=== PATIENT | female | born 1950 | race Caucasian/White ===

== ENCOUNTER 2018-07-10 06:20 | Inpatient (IN) | payer OTHER, BC ==
[2018-07-03 14:26] VITALS: BMI 25.0
[2018-07-10] MEDS ORDERED: CEFAZOLIN 2 GM in DEXTROSE 5%-WATER - 50 ML IVPB ONE (07:07)
[2018-07-10] MEDS ORDERED: CELECOXIB 200 MG CAPSULE PO ONE (07:07)
[2018-07-10] MEDS ORDERED: VANCOMYCIN 1,000 MG in DEXTROSE 5%-WATER - 250 ML IVPB ONE (07:07)
[2018-07-10] MEDS ORDERED: TRANEXAMIC ACID 1000 MG/10 ML VIAL IVPUSH ONE (07:07)
[2018-07-10] MEDS ORDERED: BUPIVACAINE LIPOSOME/PF (EXPAREL) 266 MG/20 ML VIAL ONE (07:15)
[2018-07-10] MEDS ORDERED: DEXAMETHASONE SOD PHOSPHATE/PF 10 MG/ML SDV ONE (07:15)
[2018-07-10] MEDS ORDERED: MIDAZOLAM HCL 2 MG/2 ML SINGLE DOSE VIAL ONE ×2 (07:19→07:32)
[2018-07-10] MEDS ORDERED: BENZOIN/ALOE VERA/STORAX/TOLU 58 ML BOTTLE ONE (07:29)
[2018-07-10 08:03] LABS: INR 1.09 (0.83-1.09); PROTHROMBIN TIME (PATIENT) 12.3 SEC (9.7-13.0)
[2018-07-10] MEDS ORDERED: ONDANSETRON 4 MG/2 ML VIAL IVPUSH PRN (08:32)
[2018-07-10] MEDS ORDERED: oxyCODONE HCL 5 MG TABLET PO PRN (08:32)
[2018-07-10] MEDS ORDERED: LACTATED RINGERS SOLUTION 1,000 ML IV SCH ×2 (08:45→12:30)
[2018-07-10] MEDS ORDERED: PROPOFOL 20 ML ONE ×6 (08:59→09:37)
[2018-07-10] MEDS ORDERED: ceFAZolin SODIUM 1 GM VIAL ONE ×2 (09:06→11:19)
[2018-07-10] MEDS ORDERED: SODIUM CHLORIDE 0.9% P/F 10 ML VIAL IJ ONE ×3 (09:06→11:19)
[2018-07-10] MEDS ORDERED: VANCOMYCIN 1,000 MG VIAL (RESTRICTED TO ID ONLY) ONE (09:06)
[2018-07-10] MEDS ORDERED: KETOROLAC TROMETHAMINE 30 MG/1 ML VIAL ONE (09:11)
[2018-07-10] MEDS ORDERED: METOPROLOL TARTRATE 5 MG/5 ML VIAL ONE (09:54)
[2018-07-10] MEDS ORDERED: EPINEPHrine/PF 1 MG/1 ML (1:1,000) AMPULE ONE (10:17)
[2018-07-10] MEDS ORDERED: KETOROLAC TROMETHAMINE 60 MG/2 ML VIAL ONE (10:17)
[2018-07-10] MEDS ORDERED: BUPIVACAINE HCL/PF 2.5 MG/ML - 30 ML VIAL IJ ONE (10:18)
[2018-07-10] MEDS ORDERED: morphine CARPU-JECT 10 MG/1 ML DISP.SYRIN ONE (10:18)
[2018-07-10] MEDS ORDERED: TRANEXAMIC ACID 1000 MG/10 ML VIAL ONE (11:19)
--- NOTE | 2018-07-10 12:17 | PN ---
Progress Note (short form) - Note Progress Note: 68F s/p LEFT total knee replacement POD #0. -Pain control. -DVT PPx: -Chemical: ASA 81mg PO BID x 6 weeks; home Coumadin dosage. -Mechanical: ALISHA's, SCD's. -Incentive spirometry q15 min. -PT/OT/Rehab, OOB. -WBAT LLE. -Antibiotics: Ancef x 2 post op doses. -f/u post-op trial of void. -Diet as tolerated. -Keep dressing clean & dry. -Care per medical hospitalist team. -f/u [facility] [place] office 07/18/2018; call for appointment; . -Will follow. Hesham Leal MD (Orthopaedic Surgery).
--- NOTE | 2018-07-10 12:19 | OP ---
Operative Note - Note: Operative Date: 07/10/18 Pre-Operative Diagnosis: Left knee DJD Operation: Left total knee replacement Findings: Tourniquet Pressure: 350mmHg Tourniquet Time: 98 minutes Post-Operative Diagnosis: Same as Pre-op Surgeon: Hesham Leal Medical Attendant: Michael Leal Anesthesiologist/JIGSAW OPERATOR: Matias Og Anesthesia: Spinal, Local Specimens Removed: Bone, soft tissue Estimated Blood Loss (mls): 25 Fluid Volume Replaced (mls): 1,000 Operative Report Dictated: Yes
[2018-07-10] MEDS ORDERED: MAG HYDROX/AL HYDROX/SIMETH 30 ML UNIT-DOSE CUP PO PRN (12:20)
[2018-07-10] MEDS ORDERED: MAGNESIUM HYDROX 2400MG/30ML ORAL SUSPENSION 30 ML CUP PO PRN (12:20)
[2018-07-10] MEDS ORDERED: ACETAMINOPHEN 325 MG TABLET (FP) PO ONE (12:40)
--- NOTE | 2018-07-10 14:04 | CONSULT ---
Consultation: REQUESTING PROVIDER: Dr Leal CONSULT REQUEST: We have been asked to medically evaluate this patient for medical management. HISTORY OF PRESENT ILLNESS: Patient is a 68-year-old female with a past medical history of hypertension, atrial fibrillation (Coumadin) adams's esophagus, And splenomegaly. Patient was admitted to the medical surgical floor after an elective left total knee replacement, 07/09/2018, spinal anesthesia, Dr Leal REVIEW OF SYSTEMS: CONSTITUTIONAL: Absent: fever, chills, diaphoresis, generalized weakness, malaise, loss of appetite, weight change HEENT: Absent: rhinorrhea, nasal congestion, throat pain, throat swelling, difficulty swallowing, mouth swelling, ear pain, eye pain, visual changes CARDIOVASCULAR: Absent: chest pain, syncope, palpitations, irregular heart rate, lightheadedness , peripheral edema RESPIRATORY: Absent: cough, shortness of breath, dyspnea with exertion, orthopnea, wheezing, stridor, hemoptysis GASTROINTESTINAL: Absent: abdominal pain, abdominal distension, nausea, vomiting, diarrhea, constipation, melena, hematochezia GENITOURINARY: Absent: dysuria, frequency, urgency, hesitancy, hematuria, flank pain, genital pain MUSCULOSKELETAL: Present: left knee pain Absent: myalgia, arthralgia, joint swelling, back pain, neck pain SKIN: Absent: rash, itching, pallor HEMATOLOGIC/IMMUNOLOGIC: Absent: easy bleeding, easy bruising, lymphadenopathy, frequent infections ENDOCRINE: Absent: unexplained weight gain, unexplained weight loss, heat intolerance, cold intolerance NEUROLOGIC: Absent: headache, focal weakness or paresthesias, dizziness, unsteady gait, seizure, mental status changes, bladder or bowel incontinence PSYCHIATRIC: Absent: anxiety, depression, suicidal or homicidal ideation, hallucinations. PHYSICAL EXAMINATION Vital Signs - 24 hr 07/10/18 07/10/18 07/10/18 06:59 12:25 12:30 Temperature 97.7 F 98.2 F Pulse Rate 78 73 65 Respiratory 18 18 18 Rate Blood Pressure 143/63 119/62 111/88 O2 Sat by Pulse 97 99 Oximetry (%) 07/10/18 07/10/18 07/10/18 12:35 12:40 12:45 Temperature Pulse Rate 72 65 70 Respiratory 18 18 18 Rate Blood Pressure 128/60 115/58 L 115/58 L O2 Sat by Pulse 97 99 99 Oximetry (%) 0907/10/18 07/10/18 13:00 13:15 13:26 Temperature Pulse Rate 70 70 74 Respiratory 18 18 18 Rate Blood Pressure 106/70 129/58 L 117/50 L O2 Sat by Pulse 99 99 98 Oximetry (%) 07/10/18 13:27 Temperature Pulse Rate 74 Respiratory 18 Rate Blood Pressure 117/50 L O2 Sat by Pulse Oximetry (%) GENERAL: Awake, alert, and fully oriented, in no acute distress. HEAD: Normal with no signs of trauma. EYES: Pupils equal, round and reactive to light, extraocular movements intact, sclera anicteric, conjunctiva clear. No lid lag. EARS, NOSE, THROAT: Ears normal, nares patent, oropharynx clear without exudates. Moist mucous membranes. NECK: Normal range of motion, supple without lymphadenopathy, JVD, or masses. LUNGS: Breath sounds equal, clear to auscultation bilaterally. No wheezes, and no crackles. No accessory muscle use. HEART: irregular rate and rhythm, normal S1 and S2 without murmur, rub or gallop. ABDOMEN: Soft, nontender, not distended, normoactive bowel sounds, no guarding, no rebound, no masses. No hepatomegaly or splenomegaly. MUSCULOSKELETAL: Normal range of motion at all joints. No bony deformities or tenderness. No CVA tenderness. UPPER EXTREMITIES: 2+ pulses, warm, well-perfused. No cyanosis. No clubbing. Cap refill <2 seconds. No peripheral edema. LOWER EXTREMITIES: 2+ pulses, warm, well-perfused. No calf tenderness. No peripheral edema. LEFT LOWER EXTREMITY: Dressing CDI, Less than 3 second capillary refill,+3 pedal pulse, SCD/ALISHA NEUROLOGICAL: Cranial nerves II-XII intact. Normal speech. Normal gait. PSYCHIATRIC: Cooperative. Good eye contact. Appropriate mood and affect. SKIN: Warm, dry, normal turgor, no rashes or lesions noted. Laboratory Results - last 24 hr 07/10/18 07:00 PT with INR 12.30 INR 1.09 Active Medications Generic Name Dose Route Start Last Admin Trade Name Freq PRN Reason Stop Dose Admin Acetaminophen 650 mg 07/10/18 12:00 Tylenol - PO 07/13/18 11:59 Q6H ERIN Al Hydroxide/Mg Hydroxide 30 ml 07/10/18 12:20 Mylanta Oral Suspension - PO Q4H PRN DYSPEPSIA Aspirin 81 mg 07/10/18 22:00 Asa - PO BID [facility] Celecoxib 200 mg 07/11/18 10:00 Celebrex - PO DAILY [facility] Fentanyl 50 mcg 07/10/18 08:32 07/10/18 13:15 Sublimaze Injection - IVPUSH 25 mcg [id number] PRN Administration PAIN-PACU ORDER X 4 DOSES ONLY Cefazolin Sodium 1 gram in 50 mls @ 100 mls/hr 07/10/18 19:00 Ancef 1 Gm Premixed Ivpb - IVPB 07/11/18 03:29 Q8H [facility] Lactated Ringer's 1,000 mls @ 100 mls/hr 07/10/18 12:30 Lactated Ringers Solution IV 07/11/18 06:00 ASDIR [facility] Losartan Potassium 50 mg 07/11/18 10:00 Cozaar - PO DAILY [facility] Magnesium Hydroxide 30 ml 07/10/18 12:20 Milk Of Magnesia - PO PRN PRN CONSTIPATION Ondansetron HCl 4 mg 07/10/18 08:32 07/10/18 13:17 Zofran Injection IVPUSH 4 mg Q6H PRN Administration NAUSEA AND/OR VOMITING Ondansetron HCl 4 mg 07/10/18 12:20 Zofran Injection IVPUSH Q6H PRN NAUSEA Oxycodone HCl 5 mg 07/10/18 08:32 07/10/18 13:40 Roxicodone - PO 5 mg Q3H PRN Administration PAIN LEVEL 1-5 Oxycodone HCl 10 mg 07/10/18 08:32 Roxicodone - PO Q3H PRN PAIN LEVEL 6-10 Oxycodone HCl 10 mg 07/10/18 10:00 Oxycontin - PO 07/13/18 08:35 BID [facility] Pantoprazole Sodium 40 mg 07/11/18 10:00 Protonix - PO DAILY [facility] Pantoprazole Sodium 40 mg 07/11/18 10:00 Protonix - PO DAILY [facility] Senna/Docusate Sodium 2 tablet 07/10/18 22:00 Pericolace - PO BID [facility] Warfarin Sodium 3 mg 07/12/18 18:00 Coumadin - PO TuFr [facility] Warfarin Sodium 6 mg 07/10/18 18:00 Coumadin - PO SuMoWeThSa [facility] ASSESSMENT/PLAN: 1) MS s/p left total knee replacement, POD #0 - prn pain medication - monitor hgb/hct - incentive spirometer - physical therapy as per the orthopedist 2) cardiovascular Atrial fibrillation - continous cardiac monitoring for 24 hours - restart coumadin home dose today, cleared by orthopedist - Lube Attendant, Dr. Rodriges, chart reviewed, echocardiogram completed June 2018 EF WNL cardiac catheterization completed preoperatively no coronary artery disease as per record hypertension - Continue losartan, strict - blood pressure monitoring every 4 hours 3) GI Adams's esophagus - continue Protonix daily home dose Dispo: We will continue to follow the patient. Thank you for this consultative opportunity. Visit type - Emergency Visit Emergency Visit: No - New Patient This patient is new to me today: Yes Date on this admission: 07/10/18 - Critical Care Critical Care patient: No
[2018-07-10] MEDS ORDERED: ACETAMINOPHEN 1000 MG/100 ML VIAL (NON FORMULARY) IVPB ONE (14:09)
[2018-07-10] MEDS: oxyCODONE HCL 10 MG SUSTAINED ACTING TABLET PO SCH ×2 (15:17→21:15)
[2018-07-10] MEDS: ACETAMINOPHEN 325 MG TABLET (FP) PO SCH ×2 (15:17→18:26)
[2018-07-10] MEDS: oxyCODONE HCL 5 MG TABLET PO PRN (16:07)
[2018-07-10] MEDS: WARFARIN NA 3 MG TABLET PO SCH (18:26)
[2018-07-10] MEDS: CEFAZOLIN 1 GM/D5W 1 GRAM/50 ML BAG IVPB SCH (18:26)
[2018-07-10] MEDS: SENNOSIDES/DOCUSATE COMBO (SENNA PLUS) TABLET (UD) PO SCH (21:16)
[2018-07-10] MEDS: ASPIRIN 81 MG CHEWABLE TABLETS PO SCH (21:16)
[2018-07-11] MEDS: ACETAMINOPHEN 325 MG TABLET (FP) PO SCH ×4 (00:53→17:54)
[2018-07-11] MEDS: oxyCODONE HCL 5 MG TABLET PO PRN (00:53)
[2018-07-11] MEDS: CEFAZOLIN 1 GM/D5W 1 GRAM/50 ML BAG IVPB SCH (02:09)
--- NOTE | 2018-07-11 07:26 | PN ---
Progress Note (short form) - Note Progress Note: POD #1 s/p Left total knee replacement (DJD) Alert. Doing well. Sitting in chair at bedside. States she used rolling walker and ambulated to bathroom. C/o incisional tenderness. Adequate pain control via PRN pain meds as ordered. Denies n/v/f/c, CP, SOB or MURILLO. Last Vital Signs Temp Pulse Resp BP Pulse Ox 98.1 F 61 19 113/52 L 95 07/11/18 06:00 07/11/18 06:00 07/11/18 06:00 07/11/18 06:00 07/11/18 06:55 Gen: nad Pulm: CTA bilat Cor: afib LE: RLE unremarkable. LLE: in full extension while on recliner. Actively goes into flexion ~ [address] pack [address]. Nicola wrap from toes to just above knee (mid-thigh) in place. Foot is warm. + DP. Problem List - Problems (1) Left knee DJD Assessment/Plan: POD #1 s/p Left TKR Physical therapy today Cont pain management DVT PPx: ASA 81mg PO BID x6 weeks, TEDS/SCDs Incentive spirometer WBAT LLE Cont care as per medicine DC planning 07/12 f/u with [facility] [place] [facility] - call for an appointment Above plan discussed with Dr. Hesham Leal and agrees. Code(s): M17.12 - UNILATERAL PRIMARY OSTEOARTHRITIS, LEFT KNEE
[2018-07-11 07:47] LABS: HEMATOCRIT 36.6 % (32.4-45.2); HEMOGLOBIN 12.7 GM/dl (10.7-15.3); MCH 31.8 pg (25.7-33.7); MCHC 34.7 g/dl (32.0-36.0); MEAN CELL VOLUME 91.6 fl (80-96); MEAN PLT VOLUME 9.1 fl (7.5-11.1); PLATELET COUNT 267 K/MM3 (134-434); RBC 3.99 M/mm3 (3.60-5.2); RDW 12.2 % (11.6-15.6); WHITE BLOOD COUNT 15.9 K/mm3 (4.0-10.8)
[2018-07-11 07:58] LABS: INR 1.21 (0.82-1.09); PROTHROMBIN TIME (PATIENT) 13.5 SEC (10.2-13.0)
[2018-07-11 07:59] LABS: ANION GAP 7 MMOL/L (8-16); BLOOD UREA NITROGEN 16 mg/dl (7-18); CALCIUM 9.1 mg/dl (8.4-10.2); CHLORIDE 98 mmol/L (98-107); CO2 27 mmol/L (22-28); GLUCOSE,RANDOM 110 mg/dl (74-106); POTASSIUM 4.3 mmol/L (3.5-5.1); SODIUM 132 mmol/L (136-145)
--- NOTE | 2018-07-11 08:07 | OP ---
DATE OF OPERATION: 07/10/2018 PRE-OPERATIVE DIAGNOSIS: Osteoarthritis left knee. POSTOPERATIVE DIAGNOSIS: Osteoarthritis left knee. PROCEDURE PERFORMED: Left total knee replacement. SURGEON: Hesham Leal M.D. ASSISTANT GROCERY STORE MANAGER: Michael Leal M.D. ANESTHESIA: Spinal, sedation, adductor canal block. POSITION: Supine INCISION: Midline SPECIMENS REMOVED: Bones, soft tissue. ESTIMATED BLOOD LOSS: 25 mL. INTRAVENOUS FLUID: 1L crystalloid. SPECIMENS: None. COMPLICATIONS: None. URINE OUTPUT: None. BACTERIOLOGY: None. TRANSFUSIONS: None. CLOSURE: No. 1 and 2-0 Vicryl, 3-0 Biosyn absorbable sutures. TOURNIQUET PRESSURE: 350 mmHg. TOURNIQUET TIME: 98 minutes. INDICATIONS: The patient is a 68-year-old female who was indicated for a left total knee replacement to facilitate improved motion and mobilization and to prevent the complications associated with a sedentary lifestyle. The patient was identified in the holding area by her armband. A long discussion was held with the patient, in the presence of her family, regarding the risks, benefits, and alternatives of the above-named procedure. The risks include, but are not limited to: Pain, bleeding, infection, damage to surrounding structures (including nerves, blood vessels, skin, ligaments, tendons, and bone), wound complications, failure of hardware/implants/reduction , need for further surgery, blood clots, myocardial infarction, cerebrovascular injury, pulmonary embolism, anesthesia complications, compartment syndrome, limb loss, limp, loss of function, and . Benefits were as mentioned above. Alternatives include no surgery. All questions were answered. The patient and her family agreed to the procedure. Informed consent was obtained, witnessed, and verified. The patient's correct operative limb - that is the left lower extremity - was marked and she then received a left lower extremity adductor canal nerve block in the preoperative holding area. The patient was taken to the operating room after being seen by the anesthesia and nursing staff. PROCEDURE: The patient was brought into the operating room and transferred to the OR table , where she was secured with a safety strap. Consent and the operative site were again verified with the patient and nursing and anesthesia staff. Upon arrival into the operating room, she received 1g of intravenous vancomycin , 2g of intravenous Ancef, and 1g intravenous tranexamic acid (TXA). A time-out was then done led by , the attending surgeon. The patient was positioned with all bony prominences well padded, and a tourniquet was placed proximally on the left thigh and set to 350 mmHg. The operative limb was prepped in standard sterile fashion using betadine prep & scrub, wiped off with alcohol, DuraPrep applied, and then free draped. A time-out was again done. The limb was then exsanguinated using elevation and an Esmarch. The tourniquet was inflated, and the case began. A midline longitudinal incision was made over the left knee followed by a subvastus exposure. The infrapatellar fat pad was excised. A peripatellar neurectomy was performed using electrocautery. The patella was everted, and a free-hand cut was made using an oscillating saw blade to facilitate patellar resurfacing. With the intention of implanting a 27mm, symmetric patellar button, a drill guide was utilized to ream 3 drill holes into the cut surface of the patella. The knee was then flexed to 90 degrees and the anterior cruciate ligament (ACL) and posterior cruciate ligament (PCL) were transected using electrocautery. Throughout the case, sharp and blunt Hohmann retractors were used to provide full exposure of the knee, and also to protect the collateral ligaments, the patellar ligament, the quadriceps mechanism, and other soft tissue structures. Next, attention was turned to the proximal tibia. The tibia was subluxed anteriorly and the extra-medullary jig was assembled and placed. With alignment verified, the tibial cutting block was pinned into position and the proximal tibial cut was made using an oscillating saw. The bone cut was freed of all soft tissue attachments using electrocautery. Next, attention was turned to the distal femur. An opening reamer was used to access the medullary canal of the distal femur. This was approximately 1cm anterior to the intercondylar notch and centered of the lateral aspect of the medial femoral condyle. The intra-medullary alignment jig was then inserted, and the distal femoral cutting block was pinned into position. The distal femoral cut was then made using an oscillating saw. Using a combination of [place]'s line, the trans-epicondylar axis, and the posterior condylar axis, appropriate rotation of the distal femoral sizing block was dialed in. The size of the distal femur was measured and the 4-in-1 distal femoral cutting block was pinned into position. The anterior, anterior chamfer, posterior, and posterior chamfer cuts were then made using an oscillating saw. All bone cuts were removed. With the knee in full extension, laminar spreaders were used to facilitate excision of the medial and lateral menisci using electrocautery. With the knee in full extension and gentle traction applied to the ankle, a rectangular box could be visualized where the bone cuts had been made. With gentle impaction of the proximal tibia into the distal femur, excellent limb alignment was confirmed. A spacer block was then used to confirm symmetric space/gap balance in both full extension and in 90 degrees of flexion of the knee. The notch cutting block was pinned into place over the distal femur and the notch cuts were made using a chisel and an oscillating saw. The bone cut and soft tissue attachments were excised using electrocautery. The tibial preparation plate was then pinned into place, the trial femoral component was positioned, and a 9mm trial polyethylene liner was inserted. The knee was then taken through a full range of motion, demonstrating excellent stability and range of motion in the coronal, sagittal, and axial planes from 0 to 130 degrees of flexion. At 90 degrees of flexion, 2 lug holes were drilled via the femoral trial component into the distal femoral bone bed. The femoral trial component and polyethylene liner were then removed, and the proximal tibial preparation was completed using a drill guide, drill, and keel punch. All tibial trial components were then removed. All cut bone surfaces, soft tissues, and remaining surgically exposed structures were then thoroughly irrigated using pulse lavage. The cut bone surfaces were dried, and the interstices of the bone bed were free of blood, water, and lipid content. Final components were implanted using low viscosity cement mixed in a vacuum. Cementation was performed using a pressurized gun. The trial 9mm liner was then inserted. The knee was then placed in full extension while the cement hardened. All extraneous cement was removed. Next, the knee was taken through a full range of motion and alignment and stability in the coronal, sagittal, and rotation planes in full extension and at 90 degrees of flexion were satisfactory. The leg was straightened, and passive range of motion was demonstrated from 0 to 130 degrees of knee flexion. The knee was thoroughly irrigated once again after removal of the trial polyethylene insert. Another 1g of Ancef was administered intravenously. The tourniquet was then released at a final time of 98 minutes, and hemostasis was achieved using electrocautery. The final polyethylene liner was then inserted. Once again, the knee was taken through a full range of motion and alignment and stability in the coronal, sagittal, and rotation planes in full extension and at 90 degrees of flexion were satisfactory. The leg was straightened, and passive range of motion was demonstrated from 0 to 130 degrees of knee flexion. Final components utilized: Monica Triathlon Femur - size #2. Tibia - size #2. Polyethylene liner - 9mm, PS (posterior stabilized). Patella - 27mm, symmetric. Once again, the wounds were copiously irrigated and hemostasis was assured. The wounds were closed primarily using No. 1 and 2-0 Vicryl sutures, and the skin was eventually closed using 3-0 Biosyn in intracuticular running fashion. Next, the skin surface was cleaned using saline-soaked lap pads and then dried using dry lap pads. Benzoin and Steri-Strips as well as a JumpStart dressing were applied over the wounds, and Webril as well as Nicola wraps were placed from the foot all the way up to the thigh with a compressive, sterile dressing. The sponge and needle counts were correct at the end of the case, and I, the attending surgeon, was present and scrubbed throughout the case. The patient was then transferred to the hospital bed and then to the recovery room in stable condition having tolerated this procedure well. MD KRYSTINA Jamil/[id number] MTDD
[2018-07-11] MEDS: ASPIRIN 81 MG CHEWABLE TABLETS PO SCH ×2 (09:33→21:04)
[2018-07-11] MEDS: oxyCODONE HCL 10 MG SUSTAINED ACTING TABLET PO SCH ×2 (09:34→21:04)
[2018-07-11] MEDS: CELECOXIB 200 MG CAPSULE PO SCH (09:35)
[2018-07-11] MEDS: LOSARTAN POTASSIUM 50 MG TABLET (FP) PO SCH (09:35)
[2018-07-11] MEDS: SENNOSIDES/DOCUSATE COMBO (SENNA PLUS) TABLET (UD) PO SCH ×2 (09:36→21:03)
[2018-07-11] MEDS: PANTOPRAZOLE 40 MG TABLET (FP) PO SCH (09:39)
[2018-07-11] MEDS ORDERED: PANTOPRAZOLE 40 MG TABLET (FP) PO SCH (10:00)
[2018-07-11] MEDS: ONDANSETRON 4 MG/2 ML VIAL IVPUSH PRN ×2 (11:07→17:51)
--- NOTE | 2018-07-11 11:08 | PN ---
Progress Note (short form) - Note Progress Note: 68F POD1 s/p left knee arthroplasty under spinal anesthetic with peripheral nerve blocks for post operative pain relief. Pt states that pain is well controlled and reports no anesthetic complications. AVSS. Motor and sensory function stable in bilateral lower extremities. Continue current regimen.
--- NOTE | 2018-07-11 13:58 | PN ---
Physical Exam: SUBJECTIVE: Patient seen and examined, The patient resting comfortably in bedside recliner, reports feeling well participate in physical therapy today reports minimal pain to the left lower extremity. OBJECTIVE: Patient is a 68-year-old female with a past medical history of hypertension, atrial fibrillation (Coumadin) adams's esophagus, and splenomegaly. patient is s/p Left total knee replacement, 07/10/2018, spinal anesthesia, Dr Leal Vital Signs Period Temp Pulse Resp BP Sys/Foster Pulse Ox Last 24 Hr 98.1 F-98.7 F 61-77 16-19 113-142/50-71 95-100 GENERAL: The patient is awake, alert, and fully oriented, in no acute distress. HEAD: Normal with no signs of trauma. EYES: PERRL, extraocular movements intact, sclera anicteric, conjunctiva clear. No ptosis. ENT: Ears normal, nares patent, oropharynx clear without exudates, moist mucous membranes. NECK: Trachea midline, full range of motion, supple. LUNGS: Breath sounds equal, clear to auscultation bilaterally, no wheezes, no crackles, no accessory muscle use. HEART: irregular rate and rhythm, S1, S2 without murmur, rub or gallop. ABDOMEN: Soft, nontender, nondistended, normoactive bowel sounds, no guarding, no rebound, no hepatosplenomegaly, no masses. EXTREMITIES: 2+ pulses, warm, well-perfused, no edema. LEFT EXTREMITY: scd/priya, less than 3 second capillary refill, +3 pedal pulse NEUROLOGICAL: Cranial nerves II through XII grossly intact. Normal speech, gait not observed. PSYCH: Normal mood, normal affect. SKIN: Warm, dry, normal turgor, no rashes or lesions noted Laboratory Results - last 24 hr 07/11/18 07/11/18 07/11/18 07:30 07:30 07:30 WBC 15.9 H RBC 3.99 Hgb 12.7 Hct 36.6 MCV 91.6 MCH 31.8 MCHC 34.7 RDW 12.2 Plt Count 267 MPV 9.1 PT with INR 13.5 H INR 1.21 Sodium 132 L Potassium 4.3 Chloride 98 Carbon Dioxide 27 Anion Gap 7 L BUN 16 Creatinine 1.0 Creat Clearance w eGFR 55.14 Random Glucose 110 H Calcium 9.1 Active Medications Generic Name Dose Route Start Last Admin Trade Name Freq PRN Reason Stop Dose Admin Acetaminophen 650 mg 07/10/18 12:00 07/11/18 11:07 Tylenol - PO 07/13/18 11:59 650 mg Q6H ERIN Administration Al Hydroxide/Mg Hydroxide 30 ml 07/10/18 12:20 07/11/18 12:56 Mylanta Oral Suspension - PO 30 ml Q4H PRN Administration DYSPEPSIA Aspirin 81 mg 07/10/18 22:00 07/11/18 09:33 Asa - PO 81 mg BID ERIN Administration Celecoxib 200 mg 07/11/18 10:00 07/11/18 09:35 Celebrex - PO 200 mg DAILY ERIN Administration Losartan Potassium 50 mg 07/11/18 10:00 07/11/18 09:35 Cozaar - PO 50 mg DAILY ERIN Administration Magnesium Hydroxide 30 ml 07/10/18 12:20 Milk Of Magnesia - PO PRN PRN CONSTIPATION Ondansetron HCl 4 mg 07/10/18 12:20 07/11/18 11:07 Zofran Injection IVPUSH 4 mg Q6H PRN Administration NAUSEA Oxycodone HCl 5 mg 07/10/18 08:32 07/10/18 13:40 Roxicodone - PO 5 mg Q3H PRN Administration PAIN LEVEL 1-5 Oxycodone HCl 10 mg 07/10/18 08:32 07/11/18 00:53 Roxicodone - PO 10 mg Q3H PRN Administration PAIN LEVEL 6-10 Oxycodone HCl 10 mg 07/10/18 10:00 07/11/18 09:34 Oxycontin - PO 07/13/18 08:35 10 mg BID ERIN Administration Pantoprazole Sodium 40 mg 07/11/18 10:00 07/11/18 09:39 Protonix - PO Not Given DAILY [facility] Senna/Docusate Sodium 2 tablet 07/10/18 22:00 07/11/18 09:36 Pericolace - PO 2 tablet BID [facility] Administration Warfarin Sodium 3 mg 07/12/18 18:00 Coumadin - PO TuFr ERIN Warfarin Sodium 6 mg 07/10/18 18:00 07/10/18 18:26 Coumadin - PO 6 mg SuMoWeThSa [facility] Administration ASSESSMENT/PLAN: 1) MS s/p left total knee replacement, POD #1 - prn pain medication - monitor hgb/hct - incentive spirometer - physical therapy as per the orthopedist 2) cardiovascular Atrial fibrillation - continous cardiac monitoring for 24 hours pt remains in afib, rate controlled - continue coumadin home dose, cleared by orthopedist - Health Unit Coordinator, Dr. Rodriges, chart reviewed, echocardiogram completed June 2018 EF WNL cardiac catheterization completed preoperatively no coronary artery disease as per record hypertension - Continue losartan, strict - blood pressure monitoring every 4 hours 3) GI Adams's esophagus - continue Protonix daily home dose Dispo: We will continue to follow the patient. Thank you for this consultative opportunity. Visit type - Emergency Visit Emergency Visit: No - New Patient This patient is new to me today: No - Critical Care Critical Care patient: No - Discharge Referral Referred to [facility] No
[2018-07-11] MEDS ORDERED: PANTOPRAZOLE SODIUM 40 MG VIAL IVPUSH ONE (17:32)
[2018-07-11] MEDS: WARFARIN NA 3 MG TABLET PO SCH (17:51)
[2018-07-12] MEDS: oxyCODONE HCL 5 MG TABLET PO PRN ×2 (00:56→07:32)
[2018-07-12] MEDS: ACETAMINOPHEN 325 MG TABLET (FP) PO SCH ×3 (00:56→11:48)
[2018-07-12 08:21] LABS: HEMATOCRIT 31.4 % (32.4-45.2); HEMOGLOBIN 10.9 GM/dl (10.7-15.3); MCH 32.3 pg (25.7-33.7); MCHC 34.7 g/dl (32.0-36.0); MEAN CELL VOLUME 93.2 fl (80-96); MEAN PLT VOLUME 9.1 fl (7.5-11.1); PLATELET COUNT 232 K/MM3 (134-434); RBC 3.37 M/mm3 (3.60-5.2); RDW 12.2 % (11.6-15.6); WHITE BLOOD COUNT 8.3 K/mm3 (4.0-10.8)
[2018-07-12 08:22] LABS: INR 1.79 (0.82-1.09); PROTHROMBIN TIME (PATIENT) 19.8 SEC (10.2-13.0)
--- NOTE | 2018-07-12 08:37 | DS ---
Physical Exam: SUBJECTIVE: POD#2 Left TKR Patient seen and examined at bedside with no complaints. OBJECTIVE: Vital Signs Temperature 98.2 F 07/12/18 05:00 Pulse Rate 73 07/12/18 05:00 Respiratory Rate 18 07/12/18 05:00 Blood Pressure 100/49 L 07/12/18 05:00 O2 Sat by Pulse Oximetry (%) 96 07/11/18 21:00 PHYSICAL EXAM GENERAL: The patient is awake, alert, and fully oriented, in no acute distress. HEAD: Normal with no signs of trauma. EYES: PERRL, extraocular movements intact, sclera anicteric, conjunctiva clear. ENT: Ears normal, nares patent, oropharynx clear without exudates, moist mucous membranes. NECK: Trachea midline, full range of motion, supple. LUNGS: Breath sounds equal, clear to auscultation bilaterally, no wheezes, no crackles, no accessory muscle use. HEART: Regular rate and rhythm, S1, S2 without murmur, rub or gallop. ABDOMEN: Soft, nontender, nondistended, normoactive bowel sounds, no guarding, no rebound, no hepatosplenomegaly, no masses. EXTREMITIES: 2+ pulses, warm, well-perfused, no edema. NEUROLOGICAL: Cranial nerves II through XII grossly intact. Normal speech, gait not observed. PSYCH: Normal mood, normal affect. SKIN: Warm, dry, normal turgor, no rashes or lesions noted. LABS CBC,CMP WBC 8.3 K/mm3 (4.0-10.8) 07/12/18 07:05 RBC 3.37 M/mm3 (3.60-5.2) L 07/12/18 07:05 Hgb 10.9 GM/dl (10.7-15.3) 07/12/18 07:05 Hct 31.4 % (32.4-45.2) L 07/12/18 07:05 MCV 93.2 fl (80-96) 07/12/18 07:05 MCH 32.3 pg (25.7-33.7) 07/12/18 07:05 MCHC 34.7 g/dl (32.0-36.0) 07/12/18 07:05 RDW 12.2 % (11.6-15.6) 07/12/18 07:05 Plt Count 232 K/MM3 (134-434) 07/12/18 07:05 MPV 9.1 fl (7.5-11.1) 07/12/18 07:05 Sodium 132 mmol/L (136-145) L 07/11/18 07:30 Potassium 4.3 mmol/L (3.5-5.1) 07/11/18 07:30 Chloride 98 mmol/L (98-107) 07/11/18 07:30 Carbon Dioxide 27 mmol/L (22-28) 07/11/18 07:30 Anion Gap 7 MMOL/L (8-16) L 07/11/18 07:30 BUN 16 mg/dl (7-18) 07/11/18 07:30 Creatinine 1.0 mg/dl (0.6-1.3) 07/11/18 07:30 Creat Clearance w eGFR 55.14 (>60) 07/11/18 07:30 Random Glucose 110 mg/dl (74-106) H 07/11/18 07:30 Calcium 9.1 mg/dl (8.4-10.2) 07/11/18 07:30 Troponin I < 0.02 ng/ml (0.00-0.05) 07/12/18 01:00 HOSPITAL COURSE: Date of Admission:07/10/18 Date of Discharge: 07/12/18
[2018-07-12 10:00] VITALS: BP 104/49; PULSE 65; TEMP 98.4
[2018-07-12] MEDS: PANTOPRAZOLE 40 MG TABLET (FP) PO SCH (10:01)
[2018-07-12] MEDS: LOSARTAN POTASSIUM 50 MG TABLET (FP) PO SCH (10:01)
[2018-07-12] MEDS: oxyCODONE HCL 10 MG SUSTAINED ACTING TABLET PO SCH (10:01)
[2018-07-12] MEDS: ASPIRIN 81 MG CHEWABLE TABLETS PO SCH (10:01)
[2018-07-12] MEDS: CELECOXIB 200 MG CAPSULE PO SCH (10:01)
[2018-07-12] MEDS: SENNOSIDES/DOCUSATE COMBO (SENNA PLUS) TABLET (UD) PO SCH (10:02)
--- NOTE | 2018-07-12 11:13 | DS ---
"Physical Exam: SUBJECTIVE: Patient seen and examined, patient is participating in physical therapy, reports minimal pain to the left lower extremity. OBJECTIVE:Patient is a 68-year-old female with a past medical history of hypertension, atrial fibrillation (Coumadin) adams's esophagus, And splenomegaly. Patient was admitted to the medical surgical floor after an elective left total knee replacement, 07/09/2018, spinal anesthesia, Dr Leal Vital Signs Period Temp Pulse Resp BP Sys/Foster Pulse Ox Last 24 Hr 97.6 F-98.4 F 64-73 16-18 95-134/49-67 96-97 PHYSICAL EXAM GENERAL: The patient is awake, alert, and fully oriented, in no acute distress. HEAD: Normal with no signs of trauma. EYES: PERRL, extraocular movements intact, sclera anicteric, conjunctiva clear. ENT: Ears normal, nares patent, oropharynx clear without exudates, moist mucous membranes. NECK: Trachea midline, full range of motion, supple. LUNGS: Breath sounds equal, clear to auscultation bilaterally, no wheezes, no crackles, no accessory muscle use. HEART: Regular rate and rhythm, S1, S2 without murmur, rub or gallop. ABDOMEN: Soft, nontender, nondistended, normoactive bowel sounds, no guarding, no rebound, no hepatosplenomegaly, no masses. EXTREMITIES: 2+ pulses, warm, well-perfused, no edema. lEFT LOWER EXTREMITY: Dressing clean dry and intact, less than 3 second capillary refill, +3 pedal pulse,SCDs/Uvaldo's NEUROLOGICAL: Cranial nerves II through XII grossly intact. Normal speech, gait not observed. PSYCH: Normal mood, normal affect. SKIN: Warm, dry, normal turgor, no rashes or lesions noted. LABS Laboratory Results - last 24 hr 07/11/18 07/12/18 07/12/18 17:35 01:00 07:05 WBC 8.3 RBC 3.37 L Hgb 10.9 Hct 31.4 L MCV 93.2 MCH 32.3 MCHC 34.7 RDW 12.2 Plt Count 232 MPV 9.1 PT with INR INR Troponin I < 0.03 < 0.02 07/12/18 07:05 WBC RBC Hgb Hct MCV MCH MCHC RDW Plt Count MPV PT with INR 19.8 H INR 1.79 H Troponin I HOSPITAL COURSE: Patient is a 68-year-old female that was admitted to the medical surgical floor after an elective left total knee replacement, performed by Dr. Leal with spinal anesthesia on 07/10/2018.Patient was admitted to the medical surgical floor on postoperative day 0. Patient ambulated with the physical therapist on postoperative day 1 pain was well-controlled with both narcotic and nonnarcotic analegesics. Hemoglobin remained stable throughout admission. 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 Coumadin was restarted on postoperative day 0 as per the recommendation of the orthopedist. She was placed on continuous cardiac monitoring for 48 hours postoperatively, no events was noted on telemetry. Patient does have a past medical history of hypertension, losartan was continued throughout admission. Blood pressure remained at goal. She has a past medical history of Adams's esophagus, Protonix was continued at daily home dose. PLAN - discharge home with VNS and patient will received home physical therapy for next 5 days - continue coumadin home dose repeat INR on 07/15/2018. - continue all medications as prescribed - Follow-up with Dr. Leal on 07/18/2018. e of Admission:07/10/18 Date of Discharge: 07/12/18 Minutes to complete discharge: 45 Discharge Summary Reason For Visit: UNILATERAL PRIMARY OSTEOARTHRITIS Current Active Problems Left knee DJD (Acute) Condition: Improved - Instructions Diet, Activity, Other Instructions: Dr. Leal Discharge Instructions for Knee Replacement Post Operative Instructions Physical activity Physical Therapist will come to your home for the first 5 days. You will be set up with outpatient PT at your first post-operative visit. Use assistive devices for ambulation at all times. Weight bearing as tolerated on your surgical side. Do not put pillow under knee. May put pillow under heel. Wound care Leave your surgical dressing in place. Do not change the dressing until seen by your surgeon in the office. you may shower, no baths or hot tubs, please do not submerge your incision. Do not apply any ointments or lotions to your incision. Please call the office if your dressing is soiled/dirty or is falling off. Apply Graduated Compression Stockings (TEDS) to both lower extremities - remove daily for hygiene ONLY. Diet There are no dietary restrictions. Eat healthy, high-fiber foods. Drink 6 to 8 glasses of liquid each day. This will assist in keeping your bowels are regular. Pain management Any pain prescription medication ordered should be taken as prescribed for moderate to severe pain. Do not take additional Tylenol while taking Percocet. CONTINUE COUMADIN HOME DOSE, PLEASE FOLLOW UP WITH YOUR DOCTOR ON SUNDAY, JULY 15 FOR REPEAT INR Take Aspirin 81 mg two times a day for a total of 6 weeks to prevent blood clots. Call Dr. Leal for any of the following: Severe pain not relieved by medication Fever of 101 or higher Excessive bleeding or drainage on dressing Inability to urinate If you experience chest pain or shortness of breath, please seek emergency care immediately. Please call the office at to confirm your post-op appointment for WEDNESDAY, JULY 18, 2018. This report was requested by: Vida Souza | Reference #: [id number] 06/04/2018 06/14/2018 tramadol hcl 50 mg tablet 30 10 Hesham Leal ( ) Referrals: Hesham Leal MD [Staff Physician] - 07/18/18 Disposition: VNS/HOME HEALTH CARE - Home Medications Comprehensive Discharge Medication List: Ambulatory Orders Diclofenac Sodium [Voltaren -] 75 mg PO BID PRN 02/07/18 Losartan Potassium 50 mg PO DAILY 02/07/18 Pantoprazole Sodium 40 mg PO DAILY 02/07/18 Cholecalciferol (Vitamin D3) [Vitamin D3] 2,000 unit PO Q48H 04/23/18 Warfarin Sodium [Coumadin] 6 mg PO HS 04/23/18 Warfarin Na [Coumadin] 3 mg PO HS 07/03/18 This patient is new to me today: No Emergency Visit: No Critical Care patient: No - Discharge Referral Referred to [facility] No"
[2018-07-12] MEDS: ONDANSETRON 4 MG/2 ML VIAL IVPUSH PRN (11:47)
--- NOTE | 2018-07-12 13:06 | PN ---
Progress Note (short form) - Note Progress Note: 68F s/p LEFT total knee replacement POD #2. Pain well controlled. No acute events overnight. Pt. denies overnight history of headaches, chest pain, shortness of breath, vomiting, chills, & sweats. (+) Overnight history of nausea. (+) Voiding; (+) Flatus; (-) BM. Tolerating diet. (+) Walked in hallway. All labs and vitals reviewed. PE: AAO x 3, NAD. L-Knee: Dressing C/D/I. NVI distally. A/P: 68F s/p LEFT total knee replacement POD #2. -Pain control. -DVT PPx: -Chemical: ASA 81mg PO BID x 6 weeks; home Coumadin dosage. -Mechanical: ALISHA's, SCD's. -Incentive spirometry q15 min. -PT/OT/Rehab, OOB. -WBAT LLE. -Diet as tolerated. -Care per medical hospitalist team. -f/u [facility] [place] office 07/18/2018; call for appointment; [phone]. -Discharge planning. -Will follow. Hesham Leal MD (Orthopaedic Surgery).
[2018-07-12] MEDS ORDERED: WARFARIN NA 3 MG TABLET PO SCH (18:00)
--- NOTE | 2018-07-12 18:41 | PATH ---
Surgical Pathology Report Patient Name: NICOLE LINN Med. Rec. #: [id number] /Age/Gender: 1950 (Age: 68) / F Account: [id number] [facility] Taken: 07/10/2018 Received: 07/10/2018 Reported: 07/12/2018 Physicians: Hesham Leal M.D. Specimen(s) Received BONE LEFT KNEE Clinical History Left knee osteoarthritis Final Diagnosis LEFT KNEE BONE, RESECTION: DEGENERATIVE JOINT DISEASE, LEFT KNEE. Electronically Signed Nelda Hubbard M.D. Gross Description Received in formalin, labeled "left total knee replacement" are multiple fragments of cartilage-capped bone, ranging from 2.5-7.5 cm in greatest dimension with an aggregate of 11 x 9.5 x 1.0 cm. The articular surfaces appear granular and shows areas of eburnation. Early Breastfeeding Care Specialist sections are submitted in one cassette, following decalcification. ebram/07/11/2018
--- NOTE | 2018-07-13 23:23 | EKG ---
Test Reason : Blood Pressure : / mmHG Vent. Rate : 063 BPM Atrial Rate : 063 BPM P-R Int : 124 ms QRS Dur : 088 ms QT Int : 396 ms P-R-T Axes : 008 025 032 degrees QTc Int : 405 ms NORMAL SINUS RHYTHM CANNOT RULE OUT ANTERIOR INFARCT , AGE UNDETERMINED ABNORMAL ECG NO PREVIOUS ECGS AVAILABLE Confirmed by JULIANNA CABRERA MD ([id number]) on 07/13/2018 11:23:07 PM Referred By: Hesham Leal Confirmed By:JULIANNA CABRERA MD
== END 2018-07-12 13:20 | disposition home health service (06) | DRG 470 ==
LOC: FM/S 06:20
PROVIDERS: ADMIT Orthopaedic Surgery Adult Reconstructive Orthopaedic Surgery; ATTEND Orthopaedic Surgery Adult Reconstructive Orthopaedic Surgery
PROC: 0SRD0JZ Replacement of Left Knee Joint with Synthetic Substitute, Open Approach (ICD-10-PCS; principal; 2018-07-10 09:37)
DX: M17.12 Unilateral primary osteoarthritis, left knee (principal); I48.91 Unspecified atrial fibrillation; I10 Essential (primary) hypertension; K22.70 Barrett's esophagus without dysplasia; R16.1 Splenomegaly, not elsewhere classified; Z79.01 Long term (current) use of anticoagulants; K21.9 Gastro-esophageal reflux disease without esophagitis
CPT/HCPCS: 36415; 73560-TC-LT-FY; 80048; 84484; 85027; 85610; 88304-TC; 88311-TC; 93005; 94760; 97116-GP; 97162-GP